=== PATIENT | male | born 1940 | race Two or more races ===

== ENCOUNTER 2016-10-26 07:28 | Emergency (ER) | payer MEDICARE, OTHER ==
[~2016-10-26] VITALS: Ht 170.2 cm; Wt 64.4 kg
[~2016-10-26 07:28] MED LIST: AMIT50TA3 PO; ASCO500C16 PO; ASPI81TA5 PO; OXYC5CAP3 PO; PANT40SU PO; PRAV20TA PO; TACR1CAP PO; [UNRECOGNIZED DRUG - CODE] PO; [UNRECOGNIZED DRUG - CODE] TD; [UNRECOGNIZED DRUG - OTHER] PO
--- NOTE | 2016-10-26 07:28 | NUR ---
BBRA 89 FROM HOME FOR GLF AND TRIPPED AFTER "COUGHING ONCE" PER REPORT. PT DENIES LOC. NEURO INTACT, AAO X4. HR CURRENTLY 150'S, MD AWARE. EKG AT BEDSIDE. PT HAS EPISTAXIS BUT CURRENTLY NOT BLEEDING. PER RA IS ON THE WAY HERE. PT PLACED IN GOWN AND MONITOR. CONTINUE TO MONITOR.
[2016-10-26] MEDS ORDERED: IV NS 0.9% 1,000 ML ONE ×2 (07:52→08:48)
[2016-10-26] MEDS ORDERED: IV SET PRIMARY PUMP SET 1 EA INFUS.SET MC ONE (07:52)
[2016-10-26] MEDS ORDERED: IV NS 0.9% 1,000 ML BAG IV ONE (08:00)
--- NOTE | 2016-10-26 08:00 | NUR ---
CARDIOLOGY ON-CALL PAGED
--- NOTE | 2016-10-26 08:09 | NUR ---
CALL BACK FROM DR AQUINO, DR BARON NIEVES PAGED AT [phone] VEGA
--- NOTE | 2016-10-26 08:12 | NUR ---
[facility];[phone]
[2016-10-26 08:15] LABS: BASOPHILS % (AUTO) 0.3 % (0.0-2.0); HEMATOCRIT 23 % (39-51); HEMOGLOBIN 7.8 g/dL (13.5-17.5); LYMPHOCYTES # (AUTO) 0.4 /CMM (0.8-4.8); LYMPHOCYTES % (AUTO) 3.2 % (20.0-44.0); MEAN CORPUSCULAR HEMOGLOBIN 35 PG (26.0-33.0); MEAN CORPUSCULAR HGB CONC 33 g/dl (31.0-36.0); MEAN CORPUSCULAR VOLUME 105 fL (80-96); MONOCYTES # (AUTO) 1.6 /CMM (0.1-1.30); MONOCYTES % (AUTO) 12.5 % (2.0-12.0); NEUTROPHILS # (AUTO) 10.6 /CMM (1.8-8.9); PLATELET COUNT (AUTO) 400 /CMM (150-450); RDW COEFFICIENT OF VARIATION 29.8 (11.5-15.0); RED BLOOD CELL COUNT(AUTO) 2.23 MIL/uL (4.5-6.0); WHITE BLOOD COUNT (AUTO) 12.6 K/uL (4.3-11.0)
--- NOTE | 2016-10-26 08:18 | NUR ---
dr bigg willson paged thru his office at [phone], spoke with Didi
[2016-10-26 08:25] LABS: CALCIUM, SERUM 8.1 mg/dL (8.5-10.1); CARBON DIOXIDE 30 mmol/L (21-32); CHLORIDE 96 mmol/L (98-107); CREATININE 1.1 mg/dL (0.6-1.3); GLUCOSE 198 mg/dL (74-106); POTASSIUM 5.3 mmol/L (3.5-5.1); SODIUM SERUM 130 mmol/L (136-145); UREA NITROGEN, BLOOD 12 mg/dL (7-18)
--- NOTE | 2016-10-26 08:29 | NUR ---
XRAY AT BEDSIDE
[2016-10-26 08:32] LABS: TROPONIN I < 0.017 ng/mL (0.00-0.056)
[2016-10-26 08:33] LABS: LACTIC ACID 1.3 mmol/L (0.4-2.0)
[2016-10-26 08:36] LABS: INR 1.12 (0.87-1.13); PROTHROMBIN TIME 12.1 SECS (9.5-12.7)
[2016-10-26 08:41] LABS: ALANINE AMINOTRANSFERASE 25 U/L (12-78); ALBUMIN 2.3 g/dL (3.4-5.0); ALKALINE PHOSPHATASE 102 U/L (46-116); ASPARTATE AMINOTRANSFERASE 26 U/L (15-37); B-TYPE NATRIURETIC PEPTIDE 842 PG/ML (0-125); BILIRUBIN,DIRECT 0.3 mg/dL (0.0-0.2); BILIRUBIN,TOTAL 1.1 mg/dL (0.2-1.0); TOTAL PROTEIN, SERUM 6.7 g/dL (6.4-8.2)
[2016-10-26 08:43] LABS: THYROID STIMULATING HORMONE 0.929 uIU/mL (0.358-3.74)
[2016-10-26 08:44] LABS: MAGNESIUM 1.2 mg/dL (1.8-2.4)
[2016-10-26] MEDS ORDERED: IV SET PRIMARY 1 EA INFUS.SET MC ONE (08:48)
[2016-10-26] MEDS ORDERED: PIPERACILLIN /TAZOBACTAM 3.375 G in IV D5W 50 ML IV ONE (09:00)
[2016-10-26] MEDS ORDERED: OXYMETAZOLINE HCL NASAL SPRAY 30 ML BOTTLE NS ONE ×2 (09:18→09:30)
--- NOTE | 2016-10-26 09:20 | NUR ---
DR ERICA HADDAD PAGED AT [phone]
--- NOTE | 2016-10-26 09:32 | NUR ---
[facility] CAL[facility]ED, REPORT GIVEN TO JAELYN WHO ALSO SPOKE WITH DR VEGA, SHE SAID THAT SHE WILL ACCEPT THE PATIENT
--- NOTE | 2016-10-26 09:43 | NUR ---
FACE SHEET FAXED TO [phone] PER REQUEST OF JAELYN AT THE [facility]
[2016-10-26] MEDS ORDERED: DESMOPRESSIN 4 MCG/ML AMPUL ONE (09:59)
[2016-10-26] MEDS: DESMOPRESSIN 4 MCG/ML AMPUL SQ ONE ×2 (10:21→10:23)
--- NOTE | 2016-10-26 10:25 | NUR ---
REPORT GIVEN TO JERMAINE KESSLER AT [facility] ICU FOR RUBIN
[2016-10-26 10:49] VITALS: BP 158/90
== END 2016-10-26 10:51 ==
LOC: ER 07:30
DX: S06.5X0A Traumatic subdural hemorrhage without loss of consciousness, initial encounter (principal); A41.9 Sepsis, unspecified organism; R65.20 Severe sepsis without septic shock; J96.01 Acute respiratory failure with hypoxia; E87.1 Hypo-osmolality and hyponatremia; D64.9 Anemia, unspecified; E11.9 Type 2 diabetes mellitus without complications; I48.91 Unspecified atrial fibrillation; Z94.1 Heart transplant status; Z88.8 Allergy status to other drugs, medicaments and biological substances; Z79.82 Long term (current) use of aspirin; W18.39XA Other fall on same level, initial encounter; Y93.89 Activity, other specified; Y92.89 Other specified places as the place of occurrence of the external cause; Y99.8 Other external cause status
CPT/HCPCS: 36415; 70450; 71010; 80048; 80076; 83605; 83735; 83880; 84443; 84484; 85025; 85730; 87040 ×2; 93005; 96361; 96365; 96372; 99291; 99292; A4606; J2543; J2597 ×2; J7030 ×2; J7060; Z7610

== ENCOUNTER 2024-03-13 12:37 | Inpatient (IN) | payer MEDICARE, OTHER ==
[~2024-03-13] VITALS: Ht 170.2 cm; Wt 54.4 kg
[~2024-03-13 12:37] MED LIST changes: -ASCO500C16 PO; +ASCO500C6 PO; +FAMC500T3 PO; +OXYC5CAP18 PO; -OXYC5CAP3 PO; -TACR1CAP PO; +TACR1CAP2 PO; -[UNRECOGNIZED DRUG - CODE] PO
[2024-03-13] MEDS: IV NS 0.9% 500 ML BAG IV ONE (14:20)
[2024-03-13 14:32] LABS: BASOPHILS % (AUTO) 0.2 % (0.0-2.0); EOSINOPHILS # (AUTO) 0.1 K/uL (0.0-0.7); EOSINOPHILS % (AUTO) 1.2 % (0.0-6.0); HEMATOCRIT 39 % (39-51); HEMOGLOBIN 12.4 g/dL (13.5-17.5); LYMPHOCYTES # (AUTO) 0.6 K/uL (0.8-4.8); LYMPHOCYTES % (AUTO) 10.9 % (20.0-44.0); MEAN CORPUSCULAR HEMOGLOBIN 40 PG (26.0-33.0); MEAN CORPUSCULAR HGB CONC 32 g/dl (31.0-36.0); MEAN CORPUSCULAR VOLUME 125 fL (80-96); MONOCYTES # (AUTO) 0.5 K/uL (0.1-1.30); MONOCYTES % (AUTO) 7.8 % (2.0-12.0); NEUTROPHILS # (AUTO) 4.7 K/uL (1.8-8.9); NEUTROPHILS % (AUTO) 79.9 % (43.0-81.0); PLATELET COUNT (AUTO) 227 K/uL (150-450); RED BLOOD CELL COUNT(AUTO) 3.09 MIL/uL (4.5-6.0); RED CELL DISTRIBUTION WIDTH 17.3 % (11.5-15.0); WHITE BLOOD COUNT (AUTO) 5.9 K/uL (4.3-11.0)
[2024-03-13] MEDS ORDERED: POLY15DR31 EACHEYE (14:36)
[2024-03-13] MEDS ORDERED: BLOO-668 IN (14:36)
[2024-03-13] MEDS ORDERED: MULT-594 PO (14:36)
[2024-03-13] MEDS ORDERED: DORZ1DRO7 RIGHTEYE (14:36)
[2024-03-13] MEDS ORDERED: LATA2.5D15 RIGHTEYE (14:36)
[2024-03-13] MEDS ORDERED: METF-440 PO (14:36)
[2024-03-13] MEDS ORDERED: MEMA5TAB42 PO (14:36)
[2024-03-13] MEDS ORDERED: MELA5TAB PO (14:36)
[2024-03-13] MEDS ORDERED: LEVA15HF4 IH (14:36)
[2024-03-13] MEDS ORDERED: TACR0.5C4 PO (14:36)
[2024-03-13] MEDS ORDERED: HYDR500C2 PO ×2 (14:36→14:43)
[2024-03-13] MEDS ORDERED: OMEP20CA15 PO (14:36)
[2024-03-13 14:42] LABS: CALCIUM, SERUM 8.9 mg/dL (8.5-10.1); CARBON DIOXIDE 27 mmol/L (21-32); CHLORIDE 111 mmol/L (98-107); GLUCOSE 199 mg/dL (74-106); POTASSIUM 3.9 mmol/L (3.5-5.1); SODIUM SERUM 148 mmol/L (136-145); UREA NITROGEN, BLOOD 28 mg/dL (7-18)
[2024-03-13] MEDS ORDERED: MAGNESIUM HYDROXIDE 30 ML UDC PO PRN (15:30)
[2024-03-13] MEDS ORDERED: MAG HYDROX/AL HYDROX/SIMETH 30 ML UDC PO PRN (15:30)
[2024-03-13] MEDS ORDERED: Z GUARD REMEDY 4 OZ OINT TP PRN (15:30)
[2024-03-13] MEDS ORDERED: ONDANSETRON HCL/PF 4 MG/2 ML VIAL IVP PRN (15:30)
[2024-03-13 16:00] VITALS: BP 123/89; TEMP 97.3; O2SAT 96
[2024-03-13] MEDS ORDERED: DEXTROSE 50%-WATER 50 ML DISP.SYRIN IV PRN (16:00)
[2024-03-13 16:06] LABS: ANISOCYTOSIS 1+; BAND % (MANUAL) 1 % (0.0-5.0); EOSINOPHILS % (MANUAL) 1 % (0-4); LYMPHOCYTES % (MANUAL) 10 % (16-48); MONOCYTES % (MANUAL) 3 % (0-11.0); NEUTROPHILS % (MANUAL) 85 (42-76); PLATELET ESTIMATE ADEQUATE
[2024-03-13] MEDS: TACROLIMUS ANHYDROUS 0.5 MG CAPSULE PO SCH (18:13)
[2024-03-13] MEDS: POLYVINYL ALCOHOL 15 ML BOTTLE EACHEYE SCH (18:14)
[2024-03-13] MEDS: BLOOD SUGAR DIAGNOSTIC 1 EACH STRIP IN SCH (18:14)
[2024-03-13 20:00] VITALS: BP 144/104; TEMP 97.7; O2SAT 96
[2024-03-13] MEDS: LATANOPROST EYE DROP 0.005% 2.5 ML BOTTLE RIGHTEYE SCH (21:09)
[2024-03-13] MEDS: INSULIN REGULAR, HUMAN 100 UNIT/ML 3 ML VIAL SQ PRN (22:18)
[2024-03-14 04:00] VITALS: BP 133/103; TEMP 97.8; O2SAT 96
[2024-03-14] MEDS: IV NS 0.9% 1,000 ML IV PRN (05:16)
[2024-03-14 06:11] LABS: BASOPHILS % (AUTO) 0.1 % (0.0-2.0); EOSINOPHILS # (AUTO) 0.1 K/uL (0.0-0.7); EOSINOPHILS % (AUTO) 1.7 % (0.0-6.0); HEMATOCRIT 38 % (39-51); HEMOGLOBIN 12.8 g/dL (13.5-17.5); LYMPHOCYTES # (AUTO) 0.7 K/uL (0.8-4.8); LYMPHOCYTES % (AUTO) 14.6 % (20.0-44.0); MEAN CORPUSCULAR HEMOGLOBIN 41 PG (26.0-33.0); MEAN CORPUSCULAR HGB CONC 33 g/dl (31.0-36.0); MEAN CORPUSCULAR VOLUME 121 fL (80-96); MONOCYTES # (AUTO) 0.4 K/uL (0.1-1.30); NEUTROPHILS # (AUTO) 3.8 K/uL (1.8-8.9); NEUTROPHILS % (AUTO) 75.6 % (43.0-81.0); PLATELET COUNT (AUTO) 208 K/uL (150-450); RED BLOOD CELL COUNT(AUTO) 3.17 MIL/uL (4.5-6.0)
[2024-03-14] MEDS: ATORVASTATIN 10 MG TABLET PO SCH (06:36)
[2024-03-14 06:42] LABS: IRON, SERUM 73 ug/dl (50-175); TOTAL IRON BINDING CAPACITY 215 ug/dl (250-450)
[2024-03-14 06:43] LABS: CALCIUM, SERUM 9.3 mg/dL (8.5-10.1); CARBON DIOXIDE 23 mmol/L (21-32); CHLORIDE 110 mmol/L (98-107); CREATININE 0.9 mg/dL (0.6-1.3); GLUCOSE 144 mg/dL (74-106); MAGNESIUM 1.5 mg/dL (1.8-2.4); POTASSIUM 3.8 mmol/L (3.5-5.1); SODIUM SERUM 146 mmol/L (136-145); UREA NITROGEN, BLOOD 22 mg/dL (7-18)
[2024-03-14 07:51] LABS: CHOLESTEROL 186 mg/dL (<200); HDL CHOLESTEROL 47 mg/dL (40-60); LDL 110 mg/dL (0-99); TRIGLYCERIDES 189 mg/dL (30-150)
[2024-03-14 08:11] LABS: ANISOCYTOSIS 1+; BASOPHILS % (MANUAL) 0 % (0.0-2.0); EOSINOPHILS % (MANUAL) 2 % (0-4); LYMPHOCYTES % (MANUAL) 16 % (16-48); MONOCYTES % (MANUAL) 5 % (0-11.0); NEUTROPHILS % (MANUAL) 77 (42-76); PLATELET ESTIMATE ADEQUATE
[2024-03-14] MEDS: PANTOPRAZOLE 40 MG TABLET.DR PO SCH (08:30)
[2024-03-14] MEDS: HYDROXYUREA 500 MG CAPSULE PO SCH (08:30)
[2024-03-14] MEDS: MULTIVITAMINS,THERAGRAN 1 UDTAB TABLET PO SCH (08:30)
[2024-03-14] MEDS: MEMANTINE HCL 5 MG TABLET PO SCH (08:30)
[2024-03-14 12:00] VITALS: BP_SYST 120; BP_SYST 124; BP_SYST 138; BP_DIAS 101; BP_DIAS 104; BP_DIAS 112; TEMP 97.9; O2SAT 95
[2024-03-14] MEDS: METFORMIN 500 MG TABLET PO SCH (12:37)
[2024-03-14] MEDS: MAGNESIUM OXIDE 400 MG TABLET PO ONE (12:37)
[2024-03-14] MEDS: EYE OP SCH (17:43)
[2024-03-14] MEDS: DORZOLAMIDE TIMOLOL OP SCH (17:43)
[2024-03-14 20:00] VITALS: BP 142/98; TEMP 98; O2SAT 96
[2024-03-15 04:00] VITALS: BP 146/94; TEMP 97.7; O2SAT 96
[2024-03-15 06:01] LABS: CALCIUM, SERUM 8.5 mg/dL (8.5-10.1); CARBON DIOXIDE 21 mmol/L (21-32); CHLORIDE 103 mmol/L (98-107); GLUCOSE 183 mg/dL (74-106); MAGNESIUM 1.3 mg/dL (1.8-2.4); POTASSIUM 3.7 mmol/L (3.5-5.1); SODIUM SERUM 134 mmol/L (136-145); UREA NITROGEN, BLOOD 25 mg/dL (7-18)
[2024-03-15] MEDS: CLONIDINE HCL 0.1 MG TABLET PO PRN (06:58)
[2024-03-15 08:00] VITALS: BP 112/96; TEMP 97.4; O2SAT 95
[2024-03-15] MEDS: Magnesium 1GM/D5W 100ML PREMIX 100 ML IV SCH (08:39)
[2024-03-15] MEDS: GLUCERNA SHAKE 237 ML CAN PO SCH (09:48)
[2024-03-15 10:11] LABS: FOLIC ACID > 20.0 ng/mL (>3.0)
[2024-03-15 16:00] VITALS: BP 110/85; TEMP 97.9; O2SAT 96
[2024-03-15] MEDS: MEMANTINE HCL 5 MG TABLET PO SCH (17:03)
[2024-03-15 20:00] VITALS: BP 149/102; TEMP 97; O2SAT 100
[2024-03-15] MEDS: MIRTAZAPINE 15 MG TABLET PO SCH (22:51)
[2024-03-16 04:00] VITALS: BP 136/103; TEMP 97.9; O2SAT 95
[2024-03-16 08:00] VITALS: BP 129/101; TEMP 97.9; O2SAT 95
[2024-03-16 08:06] LABS: CARBON DIOXIDE 23 mmol/L (21-32); CHLORIDE 102 mmol/L (98-107); CREATININE 1.1 mg/dL (0.6-1.3); GLUCOSE 223 mg/dL (74-106); POTASSIUM 3.5 mmol/L (3.5-5.1); SODIUM SERUM 136 mmol/L (136-145); UREA NITROGEN, BLOOD 28 mg/dL (7-18)
[2024-03-16] MEDS: MODAFINIL 100 MG TABLET PO SCH (09:59)
[2024-03-16 12:00] VITALS: BP 124/90; TEMP 98; O2SAT 95
[2024-03-16 20:00] VITALS: BP 154/97; TEMP 98.3
[2024-03-17 04:56] VITALS: BP 129/95; TEMP 98.5
[2024-03-17 08:22] LABS: CALCIUM, SERUM 8.9 mg/dL (8.5-10.1); CARBON DIOXIDE 20 mmol/L (21-32); CHLORIDE 105 mmol/L (98-107); GLUCOSE 190 mg/dL (74-106); POTASSIUM 4.2 mmol/L (3.5-5.1); SODIUM SERUM 139 mmol/L (136-145); UREA NITROGEN, BLOOD 35 mg/dL (7-18)
[2024-03-17 08:24] LABS: INR 1.03 (0.91-1.10); PARTIAL THROMBOPLASTIN TIME 26.2 SEC (24.3-34.3); PROTHROMBIN TIME 10.9 SECS (9.2-11.1)
[2024-03-17 12:00] VITALS: BP 121/98; TEMP 97.4; O2SAT 98
[2024-03-17 20:00] VITALS: BP 120/88; TEMP 98.3; O2SAT 98
[2024-03-17 20:10] LABS: METHYLMALONIC ACID 194 nmol/L (0-378)
[2024-03-17] MEDS: QUETIAPINE FUMARATE 25 MG TABLET PO SCH (21:24)
[2024-03-18] VITALS (7 sets, daily range): BP systolic 110–139; BP diastolic 72–99; TEMP 97.5–98.4; O2SAT 98–100
[2024-03-18 09:29] LABS: BASOPHILS % (AUTO) 0.2 % (0.0-2.0); EOSINOPHILS # (AUTO) 0.1 K/uL (0.0-0.7); HEMATOCRIT 38 % (39-51); HEMOGLOBIN 12.5 g/dL (13.5-17.5); LYMPHOCYTES # (AUTO) 0.6 K/uL (0.8-4.8); MEAN CORPUSCULAR HEMOGLOBIN 39 PG (26.0-33.0); MEAN CORPUSCULAR HGB CONC 33 g/dl (31.0-36.0); MEAN CORPUSCULAR VOLUME 120 fL (80-96); MONOCYTES # (AUTO) 0.6 K/uL (0.1-1.30); MONOCYTES % (AUTO) 10.8 % (2.0-12.0); NEUTROPHILS # (AUTO) 4.1 K/uL (1.8-8.9); PLATELET COUNT (AUTO) 281 K/uL (150-450); RED BLOOD CELL COUNT(AUTO) 3.22 MIL/uL (4.5-6.0); RED CELL DISTRIBUTION WIDTH 15.8 % (11.5-15.0); WHITE BLOOD COUNT (AUTO) 5.3 K/uL (4.3-11.0)
[2024-03-18 09:42] LABS: CALCIUM, SERUM 9.4 mg/dL (8.5-10.1); CARBON DIOXIDE 25 mmol/L (21-32); CHLORIDE 104 mmol/L (98-107); GLUCOSE 173 mg/dL (74-106); POTASSIUM 4.2 mmol/L (3.5-5.1); SODIUM SERUM 140 mmol/L (136-145); UREA NITROGEN, BLOOD 33 mg/dL (7-18)
[2024-03-18 10:54] LABS: ANISOCYTOSIS 1+; EOSINOPHILS % (MANUAL) 1 % (0-4); HYPOCHROMASIA 1+; LYMPHOCYTES % (MANUAL) 12 % (16-48); MONOCYTES % (MANUAL) 9 % (0-11.0); NEUTROPHILS % (MANUAL) 78 (42-76); PLATELET ESTIMATE ADEQUATE
[2024-03-18 17:07] LABS: VITAMIN B1 THIAMINE,WB 139.5 nmol/L (66.5-200.0)
[2024-03-18] MEDS: ACETAMINOPHEN 325 MG TABLET PO PRN (23:27)
[2024-03-19] MEDS: DILTIAZEM HCL 50 MG IV IVP ONE (01:07)
[2024-03-19 02:00] VITALS: O2SAT 96
[2024-03-19 04:00] VITALS: BP 123/80; TEMP 98.5; O2SAT 95
[2024-03-19] MEDS: DILTIAZEM HCL 25 MG IV IV ONE (04:09)
[2024-03-19 06:48] LABS: CALCIUM, SERUM 8.8 mg/dL (8.5-10.1); CARBON DIOXIDE 28 mmol/L (21-32); CHLORIDE 103 mmol/L (98-107); CREATININE 1.1 mg/dL (0.6-1.3); GLUCOSE 164 mg/dL (74-106); POTASSIUM 4.2 mmol/L (3.5-5.1); SODIUM SERUM 136 mmol/L (136-145); UREA NITROGEN, BLOOD 33 mg/dL (7-18)
[2024-03-19 08:00] VITALS: BP 120/94; TEMP 97.8; O2SAT 96
[2024-03-19 12:00] VITALS: BP 129/100; TEMP 96.5; O2SAT 95
[2024-03-19 16:00] VITALS: BP 122/96; TEMP 97.3; O2SAT 96
[2024-03-19 20:00] VITALS: BP 132/99; TEMP 98.2; O2SAT 96
[2024-03-20] VITALS (7 sets, daily range): BP systolic 118–147; BP diastolic 93–106; TEMP 97.5–98.2; O2SAT 93–97
[2024-03-20] MEDS: HYDROCODONE/APAP 5/325MG TABLET PO PRN (03:00)
[2024-03-20] MEDS: DILTIAZEM HCL 25 MG IV IV ONE (04:56)
[2024-03-20] MEDS ORDERED: DILTIAZEM HCL 50 MG IV IV ONE (05:00)
[2024-03-20 07:06] LABS: CALCIUM, SERUM 8.8 mg/dL (8.5-10.1); CARBON DIOXIDE 25 mmol/L (21-32); CHLORIDE 102 mmol/L (98-107); GLUCOSE 186 mg/dL (74-106); POTASSIUM 4.2 mmol/L (3.5-5.1); SODIUM SERUM 137 mmol/L (136-145); UREA NITROGEN, BLOOD 28 mg/dL (7-18)
[2024-03-20] MEDS: LORAZEPAM 0.5 MG TABLET PO PRN (13:13)
[2024-03-20] MEDS ORDERED: ANESTHESIA TRAY IN PYXIS 1 EA TRAY MC ONE (17:03)
[2024-03-20] MEDS ORDERED: ALBUMIN 5% 250 ML IV ONE (17:43)
[2024-03-20] MEDS: DILTIAZEM HCL 25 MG IV IV PRN (23:26)
[2024-03-21] MEDS: METOPROLOL TARTRATE 25 MG TABLET PO SCH (02:04)
[2024-03-21 04:00] VITALS: BP 143/103; TEMP 98.1; O2SAT 98
[2024-03-21] MEDS: METOPROLOL TARTRATE 25 MG TABLET GT SCH (08:48)
[2024-03-21 12:00] VITALS: BP 107/79; TEMP 97.9; O2SAT 98
[2024-03-21] MEDS: GLUCERNA 1.2 1,000 ML BOTTLE NG PRN ×2 (13:25→23:31)
[2024-03-21] MEDS ORDERED: DEXTROSE 50%-WATER 50 ML DISP.SYRIN IV PRN (13:30)
[2024-03-21 16:00] VITALS: BP 140/90; TEMP 97.7; O2SAT 100
[2024-03-21] MEDS: BLOOD SUGAR DIAGNOSTIC 1 EACH STRIP IN SCH (17:08)
[2024-03-21 20:00] VITALS: BP 148/102; TEMP 98.2; O2SAT 100
[2024-03-21 20:52] VITALS: O2SAT 96
[2024-03-22] VITALS (7 sets, daily range): BP systolic 110–160; BP diastolic 77–106; TEMP 97.4–99.3; O2SAT 95–100
[2024-03-22] MEDS: INSULIN REGULAR, HUMAN 100 UNIT/ML 3 ML VIAL SQ PRN (00:20)
[2024-03-22 06:48] LABS: BASOPHILS % (AUTO) 0.1 % (0.0-2.0); EOSINOPHILS # (AUTO) 0.1 K/uL (0.0-0.7); EOSINOPHILS % (AUTO) 0.9 % (0.0-6.0); HEMATOCRIT 35 % (39-51); HEMOGLOBIN 11.8 g/dL (13.5-17.5); LYMPHOCYTES # (AUTO) 0.6 K/uL (0.8-4.8); LYMPHOCYTES % (AUTO) 8.2 % (20.0-44.0); MEAN CORPUSCULAR HEMOGLOBIN 40 PG (26.0-33.0); MEAN CORPUSCULAR HGB CONC 34 g/dl (31.0-36.0); MEAN CORPUSCULAR VOLUME 118 fL (80-96); MONOCYTES # (AUTO) 0.4 K/uL (0.1-1.30); MONOCYTES % (AUTO) 5.2 % (2.0-12.0); NEUTROPHILS # (AUTO) 6.1 K/uL (1.8-8.9); NEUTROPHILS % (AUTO) 85.6 % (43.0-81.0); PLATELET COUNT (AUTO) 309 K/uL (150-450); RED BLOOD CELL COUNT(AUTO) 2.95 MIL/uL (4.5-6.0); RED CELL DISTRIBUTION WIDTH 15.7 % (11.5-15.0); WHITE BLOOD COUNT (AUTO) 7.1 K/uL (4.3-11.0)
[2024-03-22 07:15] LABS: CALCIUM, SERUM 9.2 mg/dL (8.5-10.1); CARBON DIOXIDE 28 mmol/L (21-32); CHLORIDE 103 mmol/L (98-107); CREATININE 1.2 mg/dL (0.6-1.3); GLUCOSE 155 mg/dL (74-106); MAGNESIUM 1.4 mg/dL (1.8-2.4); PHOSPHORUS 3.3 mg/dL (2.5-4.9); SODIUM SERUM 142 mmol/L (136-145); UREA NITROGEN, BLOOD 25 mg/dL (7-18)
[2024-03-22] MEDS: hydrALAZINE HCL 50 MG TABLET PO SCH (08:23)
[2024-03-22] MEDS: NITROGLYCERIN 30 GM TUBE TP SCH (09:12)
[2024-03-22] MEDS: MAGNESIUM OXIDE 400 MG TABLET PO ONE (09:14)
[2024-03-22] MEDS ORDERED: HYDR-4077 PO (11:10)
[2024-03-22] MEDS ORDERED: Quetiapine Fumarate PO (11:10)
[2024-03-22] MEDS ORDERED: METO25TA20 GT (11:10)
[2024-03-23] VITALS: BP 101/77; TEMP 97.3; O2SAT 95
[2024-03-23 04:00] VITALS: BP 141/92; TEMP 97.2; O2SAT 95
[2024-03-23 08:00] VITALS: BP 147/102; TEMP 97.7; O2SAT 97
[2024-03-23 16:00] VITALS: BP 116/73; TEMP 97.9; O2SAT 96
[2024-03-23 17:13] VITALS: BP 116/73
== END 2024-03-23 18:26 | DRG 640 ==
LOC: ER 12:39 → TELE1 15:03 → MEDSG1 15:45 → TELE1 03-19 01:24 → MEDSG1 03-23 09:40
PROVIDERS: ADMIT Nurse Practitioner Acute Care; ATTEND Nurse Practitioner Acute Care
PROC: 0DH63UZ Insertion of Feeding Device into Stomach, Percutaneous Approach (ICD-10-PCS; principal; 2024-03-20)
DX: R62.7 Adult failure to thrive (principal); E43 Unspecified severe protein-calorie malnutrition; E87.0 Hyperosmolality and hypernatremia; R64 Cachexia; Z94.1 Heart transplant status; G91.2 (Idiopathic) normal pressure hydrocephalus; F03.93 Unspecified dementia, unspecified severity, with mood disturbance; F03.918 Unspecified dementia, unspecified severity, with other behavioral disturbance; Z68.1 Body mass index [BMI] 19.9 or less, adult; E86.0 Dehydration; K21.9 Gastro-esophageal reflux disease without esophagitis; K29.70 Gastritis, unspecified, without bleeding; R13.10 Dysphagia, unspecified; E78.5 Hyperlipidemia, unspecified; E83.42 Hypomagnesemia; I10 Essential (primary) hypertension; I48.91 Unspecified atrial fibrillation; E11.9 Type 2 diabetes mellitus without complications; D53.9 Nutritional anemia, unspecified; Z86.73 Personal history of transient ischemic attack (TIA), and cerebral infarction without residual deficits; Z79.84 Long term (current) use of oral hypoglycemic drugs; R29.6 Repeated falls; H40.9 Unspecified glaucoma; F39 Unspecified mood [affective] disorder; Z96.651 Presence of right artificial knee joint; R53.1 Weakness
CPT/HCPCS: 36415; 43246; 70450-TC; 70551-TC; 71045-TC; 73564-TC; 80048-TC; 80061-TC; 82607-TC; 82962-TC; 83540-TC; 83735-TC; 83921; 84100-TC; 84425; 84443-TC; 84484-TC; 85025-TC; 85730-TC; 92526; 92611-TC; 93307-TC; 94799-TC; 97110-TC; 97112-TC; 97116-TC; 97530-TC; A4223; G0378; J0690; J1815; J2405; J2704; J3475; J3490; J7030; J7040; J7050; J7507; P9045